=== PATIENT | male | born 1975 | race Caucasian/White ===

== ENCOUNTER 2017-02-21 21:48 | Emergency (ER) | payer MEDICAID, OTHER ==
[~2017-02-21] VITALS: Ht 185.4 cm; Wt 79.4 kg
[2017-02-21 22:06] VITALS: BP 129/88
== END 2017-02-21 22:20 | disposition left against medical advice (07) ==
LOC: ED 22:03
DX: K08.89 Other specified disorders of teeth and supporting structures (principal); Z53.21 Procedure and treatment not carried out due to patient leaving prior to being seen by health care provider